=== PATIENT | female | born 1995 | race Caucasian/White ===

== ENCOUNTER 2020-06-07 15:30 | Inpatient (IN) ==
[2020-06-07 16:19] LABS: Hematocrit 35.3 % (37.0-47.0); Hemoglobin 11.5 gm/dL (12.5-16.0); Mean Cell Volume 81.7 fl (78-100); Mean Corpuscular Hemoglobin 26.6 pg (27-31); Mean Corpuscular Hgb Conc 32.6 g/dl (32-36); Mean Platelet Volume 10.2 fl (8-12.5); Neutrophil # 10.9 K/mm3 (1.3-6.0); Neutrophil % 70.1 % (42-75.0); Platelet Count 322 K/mm3 (150-450); Red Blood Count 4.32 M/mm3 (4.2-5.4); Red Cell Distribution Width 13.3 % (11.5-14.0); White Blood Count 15.5 K/mm3 (4.0-10.5)
[2020-06-07 16:31] LABS: Urine Bilirubin Negative (NEGATIVE); Urine Blood Negative /ul (NEGATIVE); Urine Ketone Negative (NEGATIVE); Urine Nitrite Negative (NEGATIVE); Urine Protein Negative (NEGATIVE); Urine Specific Gravity 1.015 SP.GR. (1.005-1.010); Urine Urobilinogen Normal (NORMAL); Urine pH 6.5 pH (5.0-7.0)
[2020-06-07 16:49] LABS: Urine Appearance Clear (CLEAR); Urine Color Pale Yellow
[2020-06-07 16:50] LABS: Urine Bacteria TRACE; Urine RBC TRACE /hpf (0-5); Urine WBC TRACE /hpf (0-5)
--- NOTE | 2020-06-07 18:01 | HP ---
Chief Complaint - Chief Complaint Date of Service: 06/07/20 Time of Service: 18:01 Chief Complaint: vaginal spotting History of Present Illness: 25 year old at 20w 0d who presents today for evaluation secondary to vaginal spotting yesterday. Today, she reports abdomina pain, back pain, green vaginal discharge and abdominal cramping. She denies any other complaints today. Medical History (Last Updated 06/07/20 @ 18:07 by Rebekah Juarez MD) premature rupture of membranes (PPROM) with unknown onset of labor Diabetes Migraine History of kidney stones Surgical History: Surgical History (Last Reviewed 06/07/20 @ 18:08 by Rebekah Juarez MD) H/O adenoidectomy Onset Date: ~2012 History of hip surgery Onset Date: ~11/1997 History of tonsillectomy Onset Date: ~2012 Family History: Family History (Last Reviewed 06/07/20 @ 18:08 by Rebekah Juarez MD) Mother Alive and well Father Alive and well Brother Alive and well Sister Alive and well Grandfather Seizures Grandfather Hyperlipemia Myocardial infarction Social History: (Last Reviewed 06/07/20 @ 18:08 by Rebekah Juarez MD) Social History: Marital status: Single household members: significant other current occupational status: employed current occupation: CRM FUNCTIONAL ANALYST Highest level of school completed/degree received: high school graduate Service: No Tobacco: Smoking Status: Current every day smoker tobacco type: cigarettes Smoking cigarettes per day: 5 Years smoked: 2 Smoking pack-years: 0.50 Alcohol: alcohol intake: never Substance Use: substance use type: does not use Dietary Habits: caffeine: Yes caffeine comment: occasional Exercise: Physical activity type: bicycling Review Of Systems (GEN) - Review of Systems Generalized/Overall Review: Absent: Chills, Fever, Diaphoresis EENTM: Present: No Symptoms Reported Respiratory: Present: No Symptoms Reported Cardiac: Present: No Symptoms Reported Abdominal: Present: Abdominal Pain Genitourinary: Present: Other - green vaginal discharge Musculoskeletal: Present: No Symptoms Reported Neurological: Present: No Symptoms Reported Skin: Present: No Symptoms Reported Endocrine: Present: No Symptoms Reported Immunizations: IMMUNIZATION HX Immunizations Up to Date Yes History of Influenza Vaccine Yes Hx Pneumococcal Vaccination No Allergies/Adverse Reactions: Allergies Allergy/AdvReac Type Severity Reaction Status Date / Time No Known Allergies Allergy Verified 05/17/20 07:41 Home Medications: HOME MEDICATIONS prenat.vits,candido,wnn-zzyu-zyozk 1 tab PO DAILY 02/28/20 [Last Taken 06/06/20] blood sugar diagnostic See Rx Instructions .ROUTE .MEDSUPPLY #100 ea 03/01/20 [Last Taken Unknown] blood-glucose meter See Rx Instructions .ROUTE .MEDSUPPLY #1 ea 03/01/20 [Last Taken Unknown] lancets 30 gauge See Rx Instructions [id number] .MEDSUPPLY #200 ea 03/01/20 [Last Taken Unknown] levothyroxine 50 mcg tablet 50 mcg PO DAILY #30 tab 04/12/20 [Last Taken 06/06/20] Acetaminophen [Tylenol] 1,000 mg PO PRN 06/07/20 [Last Taken 06/06/20] Insulin NPH Human Isophane [Humulin N NPH U-100 Insulin] 50 unit SUBCUT HS 06/07/20 [Last Taken 06/06/20] Insulin Regular, Human [Humulin R] 16 unit SC TIDWM 06/07/20 [Last Taken 06/07/20] Exam - Exam Vital Signs: Vital Signs - Last Taken Temp 37.4 C 06/07/20 15:53 Pulse 90 06/07/20 15:53 Resp 18 06/07/20 15:53 BP 121/65 06/07/20 15:53 Pulse Ox 99 06/07/20 15:53 Constitutional: Present: Alert, Oriented x3, Cooperative, No distress ENT Exam: Present: hearing grossly normal Eye Exam: bilateral eye: normal inspection Neck: Present: normal inspection Back Exam: Present: normal inspection Breasts: Present: Exam deferred Respiratory: Present: lungs clear, normal breath sounds Cardiovascular/Chest: Present: regular rate, rhythm Abdomen: Present: soft, nondistended, tender - over the fundus /Rectal: Present: Other - SSE: visually closed, mucus seen but no obvious discharge. Wet prep collected Extremity: Present: non-tender, no calf tenderness Skin Exam: Present: normal color, warm/dry, no cyanosis Neurologic: Present: alert, normal mood/affect, oriented x 3 Appearance: Present: appropriate appearance, appropriate insight, neat, no memory impairment Eye contact: Present: cooperative, good eye contact, normal speech Thoughts: Present: normal thought pattern Diagnostic Studies: Abnormal Lab Results 06/07/20 06/07/20 Range/Units 15:58 16:00 WBC 15.5 H (4.0-10.5) K/mm3 Hgb 11.5 L (12.5-16.0) gm/dL Hct 35.3 L (37.0-47.0) % MCH 26.6 L (27-31) pg Immature Gran % (Auto) 0.90 H (0.001-0.429) % Immature Gran # (Auto) 0.14 H (0.000-0.0310) K/mm3 Neutrophils # 10.9 H (1.3-6.0) K/mm3 Urine WBC Trace H (0-5) /hpf Laboratory Results WBC 15.5 K/mm3 (4.0-10.5) H 06/07/20 15:58 RBC 4.32 M/mm3 (4.2-5.4) 06/07/20 15:58 Hgb 11.5 gm/dL (12.5-16.0) L 06/07/20 15:58 Hct 35.3 % (37.0-47.0) L 06/07/20 15:58 MCV 81.7 fl (78-100) 06/07/20 15:58 MCH 26.6 pg (27-31) L 06/07/20 15:58 MCHC 32.6 g/dl (32-36) 06/07/20 15:58 RDW 13.3 % (11.5-14.0) 06/07/20 15:58 Plt Count 322 K/mm3 (150-450) 06/07/20 15:58 MPV 10.2 fl (8-12.5) 06/07/20 15:58 Immature Gran % (Auto) 0.90 % (0.001-0.429) H 06/07/20 15:58 Immature Gran # (Auto) 0.14 K/mm3 (0.000-0.0310) H 06/07/20 15:58 Neutrophils % 70.1 % (42-75.0) 06/07/20 15:58 Lymphocytes % 21.9 % (20-51) 06/07/20 15:58 Monocytes % 6.2 % (0.0-9) 06/07/20 15:58 Eosinophils % 0.6 % (0.0-3.0) 06/07/20 15:58 Basophils % 0.3 % (0.0-1.0) 06/07/20 15:58 Nucleated RBC % 0.0 k/mm3 (0-1) 06/07/20 15:58 Neutrophils # 10.9 K/mm3 (1.3-6.0) H 06/07/20 15:58 Lymphocytes # 3.41 k/mm3 (1.5-3.5) 06/07/20 15:58 Monocytes # 1.0 k/mm3 (0.0-1.0) 06/07/20 15:58 Eosinophils # 0.1 k/mm3 (0.0-0.7) 06/07/20 15:58 Absolute Basophils 0.1 k/mm3 (0.0-0.1) 06/07/20 15:58 Urine Color Pale yellow 06/07/20 16:00 Urine Appearance Clear (CLEAR) 06/07/20 16:00 Urine pH 6.5 pH (5.0-7.0) 06/07/20 16:00 Ur Specific Stuart 1.015 SP.GR. (1.005-1.010) 06/07/20 16:00 Urine Protein Negative mg/dL (NEGATIVE) 06/07/20 16:00 Urine Glucose (UA) Negative mg/dL (NEGATIVE) 06/07/20 16:00 Urine Ketones Negative mg/dL (NEGATIVE) 06/07/20 16:00 Urine Blood Negative /ul (NEGATIVE) 06/07/20 16:00 Urine Nitrate Negative (NEGATIVE) 06/07/20 16:00 Urine Bilirubin Negative mg/dl (NEGATIVE) 06/07/20 16:00 Urine Urobilinogen Normal EU/dl (NORMAL) 06/07/20 16:00 Ur Leukocyte Esterase Negative /ul (NEGATIVE) 06/07/20 16:00 Urine RBC Trace /hpf (0-5) 06/07/20 16:00 Urine WBC Trace /hpf (0-5) H 06/07/20 16:00 Ur Epithelial Cells Trace /hpf (0-5) 06/07/20 16:00 Urine Bacteria Trace (NONE) 06/07/20 16:00 Urine Culture Comments Culture to follow 06/07/20 16:00 Blood Type A Positive 06/07/20 15:58 Antibody Screen Negative 06/07/20 15:58 Assessment/Plan - Narrative Narrative: 25 year old at 20w 0d Discussed the case with Dr. Dante MALDONADO and he recommends delivery. Even though the patient does not have a fever and does not technically meet the book definition of chorioamnionitis she has all the signs and symptoms of such with a low grade temperature. The patient and her boyfriend are counseled regarding the rationale for delivery. I explained the risk of infection and progression to maternal sepsis and . Triple antibiotics during induction Insulin drip during induction - Assessment/Plan (1) Leukocytosis Problem: Acute (2) premature rupture of membranes (PPROM) with unknown onset of labor Problem: Acute (3) Chorioamnionitis in second trimester Problem: Acute (4) Type 2 diabetes mellitus Problem: Acute Qualifiers: Diabetes mellitus intermediate designer insulin use: without alf use Diabetes mellitus complication status: without complication Qualified Code(s): E11.9 - Type 2 diabetes mellitus without complications
[2020-06-07] MEDS ORDERED: LIDOCAINE HCL 50 ML VIAL PERI PRN (19:26)
[2020-06-07] MEDS ORDERED: ONDANSETRON 4 MG TAB.RAPDIS PO PRN (19:26)
[2020-06-07] MEDS ORDERED: INSULIN REGULAR, HUMAN 100 UNITS in NORMAL SALINE 100 ML IV PRN ×2 (19:26)
[2020-06-07] MEDS ORDERED: BUTORPHANOL TARTRATE 2 MG/ML VIAL IV PRN ×2 (19:26)
[2020-06-07] MEDS ORDERED: RINGER'S SOLUTION,LACTATED 1,000 ML IV ONE (19:26)
[2020-06-07] MEDS ORDERED: INSULIN REGULAR, HUMAN 100 UNITS/ML VIAL ONE (20:28)
[2020-06-07] MEDS ORDERED: GENTAMICIN SULFATE 80 MG in DEXTROSE 5 % IN WATER 100 ML IV ONE ×2 (20:30)
[2020-06-07] MEDS: AMPICILLIN SODIUM 2,000 MG in NORMAL SALINE 100 ML IV SCH (20:47)
[2020-06-07] MEDS: CLINDAMYCIN IN 0.9 % SOD CHLOR 900 MG/50 ML BAG IV SCH ×2 (21:27→21:34)
[2020-06-07] MEDS: MISOPROSTOL 100 MCG TABLET VG SCH (22:04)
[2020-06-07] MEDS: GENTAMICIN SULFATE 80 MG in DEXTROSE 5 % IN WATER 100 ML IV SCH ×2 (22:46)
[2020-06-07] MEDS ORDERED: ONDANSETRON HCL/PF 2 MG/ML VIAL IV PRN (23:38)
[2020-06-07] MEDS ORDERED: NALOXONE HCL 1 MG/1 ML SYRG IV PRN (23:38)
[2020-06-07] MEDS ORDERED: BUPIVACAINE HCL/0.9 % NACL/PF 250 ML EP PRN (23:38)
[2020-06-07] MEDS ORDERED: fentaNYL CITRATE/PF 50 MCG/ML AMPUL IT SCH (23:45)
[2020-06-08] MEDS: RINGER'S SOLUTION,LACTATED 1,000 ML IV PRN ×2 (00:33→08:39)
--- NOTE | 2020-06-08 00:35 | ANES ---
Anesthesia Pre Procedure Eval Vitals/Labs: Last Vital Signs Temp 37.1 C 06/07/20 19:00 Pulse 100 06/07/20 19:00 Resp 16 06/07/20 19:00 BP 134/68 06/07/20 19:00 Pulse Ox 97 06/07/20 19:00 HOME MEDICATIONS prenat.vits,candido,gwo-hlyh-vqpmx 1 tab PO DAILY 02/28/20 [Last Taken 06/06/20] blood sugar diagnostic See Rx Instructions .ROUTE .MEDSUPPLY #100 ea 03/01/20 [Last Taken Unknown] blood-glucose meter See Rx Instructions .ROUTE .MEDSUPPLY #1 ea 03/01/20 [Last Taken Unknown] lancets 30 gauge See Rx Instructions [id number] .MEDSUPPLY #200 ea 03/01/20 [Last Taken Unknown] levothyroxine 50 mcg tablet 50 mcg PO DAILY #30 tab 04/12/20 [Last Taken 06/06/20] Acetaminophen [Tylenol] 1,000 mg PO PRN 06/07/20 [Last Taken 06/06/20] Insulin NPH Human Isophane [Humulin N NPH U-100 Insulin] 50 unit SUBCUT HS 06/07/20 [Last Taken 06/06/20] Insulin Regular, Human [Humulin R] 16 unit SC TIDWM 06/07/20 [Last Taken 06/07/20] Allergies/Adverse Reactions: Allergies Allergy/AdvReac Type Severity Reaction Status Date / Time No Known Allergies Allergy Verified 05/17/20 07:41 - Planned Procedure Planned Procedure: labor epidural Medication List Reviewed:: Yes Allergies Verified: Yes Medical History (Last Reviewed 06/08/20 @ 00:35 by Barak Vizcarra CRNA) premature rupture of membranes (PPROM) with unknown onset of labor Diabetes Migraine History of kidney stones Surgical History (Last Reviewed 06/08/20 @ 00:35 by Barak Vizcarra CRNA) H/O adenoidectomy Onset Date: ~2012 History of hip surgery Onset Date: ~11/1997 History of tonsillectomy Onset Date: ~2012 Family History (Last Reviewed 06/08/20 @ 00:35 by Barak Vizcarra CRNA) Mother Alive and well Father Alive and well Brother Alive and well Sister Alive and well Grandfather Seizures Grandfather Hyperlipemia Myocardial infarction - Family Anesthesia History Family History:: no untoward family reactions to anesthesia - Airway/Neck/Teeth Within Normal Limits:: Yes Teeth Condition: intact Neck Exam: full range of motion Mallampatti Score: 2 Thyromental (T-M) distance: > 6 cm Mandibulo Hyoid distance: > 3 cm - Respiratory Respiratory Physical: lungs clear Smoking Status: Never smoker Sleep Apnea currently treated: No Sleep Apnea by current assessment: No - Cardiovascular Tolerate Activity: Fair Heart Sounds: S1 & S2, Regular - Gastrointestinal NPO since: 1999 - Anesthesia Assessment and Plan ASA Class: PS, II, E Anesthesia Type Plan: Epidural Planned difficult intubation/equipment available: No
--- NOTE | 2020-06-08 00:36 | ANES ---
Post Anesthesia Assessment - Vital Signs Vitals: Last Vital Signs Temp 37.1 C 06/07/20 19:00 Pulse 100 06/07/20 19:00 Resp 16 06/07/20 19:00 BP 134/68 06/07/20 19:00 Pulse Ox 97 06/07/20 19:00 Airway Patency: Normal - Mental Status Level Of Consciousness: Awake - Pain Level Pain Score: 2 - N/V Assessment Nausea/Vomiting Presence: None Dehydration:: No
--- NOTE | 2020-06-08 00:36 | ANES ---
Post Anesthesia Discharge - Transfer of Care Transfer of Care handoff given to nurse: Yes - Anesthesia Post Op Note Anesthesia Post Op Note: Care transferred to OB RN
--- NOTE | 2020-06-08 00:37 | ANES ---
Anesthesia Procedure Note Procedure Note: ANESTHESIA PROCEDURE NOTE Date of Procedure: 06/08/2020 Time of procedure: 14. Performed by: Andrew Vizcarra CRNA Cloth Tester: None. Preprocedure diagnosis: Active labor. Chorioamnionitis Post procedure diagnosis: Same. Procedure: Insertion of labor epidural. Indications: The patient is a 25-year-old prima para female in active labor requesting labor epidural for pain management. Findings: See below. Details of the procedure: The patient was placed in a sitting position. Back was prepped with DuraPrep. Patient was then draped in a sterile fashion. Lidocaine 1% was infiltrated to the skin and subcutaneous tissues at the level of the L3 4 interspace. The epidural space was identified using a 18-gauge Tuohy needle with [id number] technique. 20 mcg fentanyl was given intrathecally using a 27 ga. spinal needle. Epidural catheter was inserted without difficulty. Negative test dose was elicited using 5 mL of 1.5% preservative-free lidocaine plus epinephrine 1 200,000. The epidural catheter was then taped and secured in place. EBL: Minimal. Fluids: N/A. Specimen: N/A. Post procedure condition: The patient tolerated the procedure well. No complications were noted. Thank you for this consultation. De Anda CRNA
[2020-06-08] MEDS: AMPICILLIN SODIUM 2,000 MG in NORMAL SALINE 100 ML IV SCH ×4 (02:22→19:55)
[2020-06-08] MEDS: MISOPROSTOL 100 MCG TABLET VG SCH ×2 (02:32→05:39)
[2020-06-08] MEDS ORDERED: CLINDAMYCIN IN 0.9 % SOD CHLOR 900 MG/50 ML BAG IV SCH (03:28)
[2020-06-08] MEDS ORDERED: MISOPROSTOL 200 MCG TABLET VG SCH ×2 (06:45→08:00)
[2020-06-08] MEDS: CLINDAMYCIN IN 0.9 % SOD CHLOR 900 MG/50 ML BAG IV SCH ×3 (06:46→21:13)
[2020-06-08] MEDS: LEVOTHYROXINE SODIUM 50 MCG TABLET PO SCH (07:24)
--- NOTE | 2020-06-08 07:57 | PN ---
Progess Note - Interim Date: 06/08/20 Time: 07:54 Narrative: 06/08/20 07:54 The patient is comfortable with her epidural The patient is s/p cytotec 200mcg PV times 3 doses so far. Increase the dose to 400 mcg q4H. Discussed expectations for delivery and also for placental delivery. Ensure the patient is on a diabetic diet. Continue triple antibiotics The patient has not required the insulin drip so far
[2020-06-08] MEDS ORDERED: OXYTOCIN/0.9 % SODIUM CHLORIDE 30 UNITS/500 ML BAG IV ONE ×2 (11:18→16:53)
[2020-06-08] MEDS ORDERED: MISOPROSTOL 200 MCG TABLET RC SCH (15:30)
[2020-06-08] MEDS ORDERED: BENZOCAINE/MENTHOL 81 SPRAY CAN TP PRN (16:53)
[2020-06-08] MEDS ORDERED: HYDROCORTISONE 30 APPL TUBE TP PRN (16:53)
[2020-06-08] MEDS ORDERED: BISACODYL 10 MG SUPP.RECT RC PRN (16:53)
[2020-06-08] MEDS ORDERED: diphenhydrAMINE HCL 25 MG CAPSULE PO PRN (16:53)
[2020-06-08] MEDS ORDERED: SENNOSIDES 8.6 MG TABLET PO PRN (16:53)
[2020-06-08] MEDS ORDERED: GLYCERIN/WITCH HAZEL LEAF 40 APPL BOX TP PRN (16:53)
[2020-06-08] MEDS ORDERED: HYDROcodone/ACETAMINOPHEN 1 EACH TABLET PO PRN ×2 (16:53)
--- NOTE | 2020-06-08 17:18 | OR ---
Operative Report - Dictated Report Narrative: Date of delivery: 06/08/2020 Time of delivery: 1107 Gender: male weight: 303 grams APGARS: 0/0/0 Procedure: Description of the procedure: I was called by RN due to delivery of the fetus in the bed. Fetus did not have spontaneous respirations or heart rate at delivery. I clamped the umbilical cord. The other portion of the umbilical cord was clamped with a Chasidy and left to allow for spontaneous delivery of the placenta. Pitocin at 30 mL/hour started (30 units in 500 mL bag). The placenta delivered at 1530. The placenta was noted to be in the vagina and manual removal was undertaken since bleeding was increasing and the patient complained of increased vaginal pressure. The placenta and cord were attached and the placenta appeared intact. Cytotec 1000 mcg placed rectally due to bleeding. A bedside ultrasound confirmed a thin endometrial stripe. EBL: 300 mL Complications: none Specimens: placenta to pathology History for Definition: * The number of deliveries resulting in a live the patient experienced prior to current hospitalization * The previous delivery of live twins or any live multiple gestation is considered one live event. *If primagravida or nulliparous is documented select zero for the number of previous live births. Live Events: 0
[2020-06-08] MEDS: IBUPROFEN 800 MG TABLET PO PRN (19:10)
[2020-06-08] MEDS ORDERED: ZOLPIDEM TARTRATE 5 MG TABLET PO PRN (20:04)
[2020-06-08] MEDS ORDERED: DOCUSATE SODIUM 100 MG CAPSULE PO SCH (21:00)
[2020-06-08] MEDS: GENTAMICIN SULFATE 80 MG in DEXTROSE 5 % IN WATER 100 ML IV SCH ×2 (22:37)
[2020-06-09] MEDS: AMPICILLIN SODIUM 2,000 MG in NORMAL SALINE 100 ML IV SCH ×2 (02:47→08:17)
[2020-06-09] MEDS: CLINDAMYCIN IN 0.9 % SOD CHLOR 900 MG/50 ML BAG IV SCH (05:13)
[2020-06-09] MEDS: IBUPROFEN 800 MG TABLET PO PRN (05:40)
[2020-06-09 06:26] LABS: Hemoglobin 10.7 gm/dL (12.5-16.0); Mean Cell Volume 82.5 fl (78-100); Mean Corpuscular Hemoglobin 26.8 pg (27-31); Mean Corpuscular Hgb Conc 32.4 g/dl (32-36); Mean Platelet Volume 10.3 fl (8-12.5); Neutrophil # 10.1 K/mm3 (1.3-6.0); Neutrophil % 67.7 % (42-75.0); Platelet Count 266 K/mm3 (150-450); Red Cell Distribution Width 13.4 % (11.5-14.0)
[2020-06-09 06:45] LABS: Hemoglobin A1C 6.2 % (3.80-5.60)
[2020-06-09 06:51] LABS: T4 Free * 1.03 ng/dL (0.76-1.46); TSH * 2.677 uIU/mL (0.358-3.74)
--- NOTE | 2020-06-09 07:42 | PN ---
Subjective - Date and Time Seen Date: 06/09/20 Time: 07:40 Subjective Narrative: The patient is much improved. Vaginal bleeding is minimal Objective - Review of Systems Generalized/Overall Review: Reports: No Symptoms Reported Misc: All systems neg except as marked - Vitals Vitals: Last Vital Signs Temp 36.8 C 06/09/20 00:44 Pulse 86 06/09/20 00:44 Resp 16 06/09/20 00:44 BP 116/78 06/09/20 00:44 Pulse Ox 97 06/09/20 00:44 - Abnormal Lab Findings Abnormal Lab Findings: Abnormal Lab Results 06/09/20 06/09/20 Range/Units 05:40 06:00 WBC 15.0 H (4.0-10.5) K/mm3 RBC 4.00 L (4.2-5.4) M/mm3 Hgb 10.7 L (12.5-16.0) gm/dL Hct 33.0 L (37.0-47.0) % MCH 26.8 L (27-31) pg Immature Gran % (Auto) 0.60 H (0.001-0.429) % Immature Gran # (Auto) 0.09 H (0.000-0.0310) K/mm3 Neutrophils # 10.1 H (1.3-6.0) K/mm3 Monocytes # 1.1 H (0.0-1.0) k/mm3 Hemoglobin A1c 6.2 H (3.80-5.60) % - Exam Constitutional: Present: Alert, Oriented x3, Cooperative, No distress Abdomen: Present: soft, nontender, nondistended Extremity: Present: non-tender, no calf tenderness Skin Exam: Present: normal color, warm/dry, no cyanosis Neurologic: Present: alert, normal mood/affect, oriented x 3 Appearance: Present: appropriate appearance, appropriate insight, neat, no memory impairment Eye contact: Present: cooperative, good eye contact, normal speech Thoughts: Present: normal thought pattern Cauti Physician Documentation - Urinary Catheter Management Urethral (Bird) Urethral Indwelling: No Date of Insertion: 06/08/20 Time of Insertion: 01:00 Date of Removal: 06/08/20 Time of Removal: 15:30 Assessment/Plan Plan Narrative: PPD 1 s/p Doing well considering loss Discharge on augmentin and lexapro Continue synthroid Follow-up in 4 weeks or sooner for any other concerns - Problems/Diagnosis (1) Leukocytosis Problem: Acute (2) premature rupture of membranes (PPROM) with unknown onset of labor Problem: Acute (3) Chorioamnionitis in second trimester Problem: Acute (4) Type 2 diabetes mellitus Problem: Acute Qualifiers: Diabetes mellitus watermelon inspector insulin use: without long-term use Diabetes mellitus complication status: without complication Qualified Code(s): E11.9 - Type 2 diabetes mellitus without complications
--- NOTE | 2020-06-09 07:48 | DS ---
OB Discharge Summary (1) Leukocytosis Status: Acute (2) premature rupture of membranes (PPROM) with unknown onset of labor Status: Acute (3) Chorioamnionitis in second trimester Status: Acute Qualifiers: Fetus number: single or unspecified fetus Qualified Code(s): O41.1220 - Chorioamnionitis, second trimester, not applicable or unspecified (4) Type 2 diabetes mellitus Status: Acute Qualifiers: Diabetes mellitus jail insulin use: without equipment operator intermodal yard use Diabetes mellitus complication status: without complication Qualified Code(s): E11.9 - Type 2 diabetes mellitus without complications Delivery Date: 06/08/20 Delivery Time: 11:07 :: 2 Para:: 1 Gestational weeks:: 20 Gestational days:: 1 Intrapartum Procedures: Spontaneous Vaginal Delivery, Anesthesia - Epidural Procedures: Antibiotics1 /OP Complications: No Complications Discharge Diagnosis: Delivery - nonviable fetus secondary to gestational age, Other - Discharge Information Date of Discharge: 06/09/20 Hospital Course: Patient presented for evaluation and found to have chorioamnionitis. Labor was induced. Fetus delivered spontaneously. Placenta manually removed from the vagina. Discharge Location: Home Disposition: Home self-care Referrals: Wendy Brock MD [Primary Care Provider] - Activity on Discharge:: Activity as tolerated, Pelvic Rest Discharge Diet: General/regular food Complete Home Medications List: Complete Home Medication List: prenat.vits,candido,nqg-mgwg-zzxxu 1 tab PO DAILY 02/28/20 blood sugar diagnostic See Rx Instructions .ROUTE .MEDSUPPLY #100 ea 03/01/20 blood-glucose meter See Rx Instructions .ROUTE .MEDSUPPLY #1 ea 03/01/20 lancets 30 gauge See Rx Instructions [id number] .MEDSUPPLY #200 ea 03/01/20 levothyroxine 50 mcg tablet 50 mcg PO DAILY #30 tab 04/12/20 Acetaminophen [Tylenol] 1,000 mg PO PRN 06/07/20 Insulin NPH Human Isophane [Humulin N NPH U-100 Insulin] 50 unit SUBCUT HS 06/07/20 Insulin Regular, Human [Humulin R] 16 unit SC TIDWM 06/07/20 - Plan Discharge to:: Home Comment:: Routine Discharge Instructions Follow up in office in:: Other - 4 weeks Comment:: Follow-up with Dr. Howell in [address] Brock in 1 month - [employer] Information Weight (Grams): 303 Sex: Male Score 1 min: 0 Score 5 min: 0 Complications: Other - chorioamnionitis, demise
[2020-06-09] MEDS: LEVOTHYROXINE SODIUM 50 MCG TABLET PO SCH (08:21)
[2020-06-09] MEDS ORDERED: metFORMIN HCL 500 MG TABLET PO SCH (09:00)
[2020-06-09 09:08] VITALS: BP 109/63
== END 2020-06-09 10:55 | disposition home or self-care (01) | DRG 805 ==
LOC: OBCLINIC 15:30 → OB 19:53
PROVIDERS: ADMIT Obstetrics & Gynecology; ATTEND Obstetrics & Gynecology